=== PATIENT | male | born 1965 | race African-American/Black ===

== ENCOUNTER 2024-10-08 20:33 | Observation (INO) ==
--- NOTE | 2024-10-08 20:49 | ED.PDOC ---
General <BHAVANI YEE DO - Last Filed: 10/09/24 07:21> [facility] ED Provider: Dr. BHAVANI YEE DO Chief Complaint: Chest Pain Stated Complaint: 58-year-old -British male presents via EMS with complaint of chest pain. Medics state that the patient specifically requested to come to [facility]. Patient has severe expressive aphasia and is unintelligible but appears to be oriented and not have receptive aphasia. However cannot be definitively determined. He has a markedly elevated blood pressure here but does not continue to complain of chest pain. He does however become easily agitated if staff is on the telephone and he feels that we are speaking about him. Unfortunately patient is initially in the harmon so every time we use the phone to talk about another patient he becomes agitated thinking were talking with his family and he is adamantly stating he does not want anyone in his family contacted. He is alert oriented does not appear to be in any acute respiratory respiratory distress. Blood pressure is noted markedly elevated 240/194. Meds given see below. Unable to obtain review of systems given patient's expressive aphasia and lack of family member and lack of previous medical records. Time Seen by Provider: 10/08/24 20:48 Mode of Arrival: Ambulance Information Source: Patient Exam Limitations: Altered mental status and Other (Expressive aphasia both oral and written) Nursing and Triage Documentation Reviewed and Agree: Yes Opioid Naive vs. Tolerant Does Patient Take Opioids?: No Is Patient Opioid Naive?: Yes What is Opioid Naive?: *Opioid Naive implies the patient is not already taking opioids or not chronically receiving opioids on a daily basis. *PRN dosing is not "usually" associated with tolerance. *Patients are at higher risk of over-sedation and aspiration. Is Patient Opioid Tolerant?: No What is Opioid Tolerant?: *Opioid Tolerance implies less than the expected response to an opioid. *Acquired tolerance is defined by the patient taking 60mg of oral morphine daily (or equianalgesic dose of another opioid) for 1 week or more. *Often associated with chronic pain. *May take more than usual dose to achieve desired pain control. Review of Systems <BHAVANI YEE DO - Last Filed: 10/09/24 07:21> Review Of Systems Constitutional: Denies Chills or Fever Cardiac: Reports Chest pain All Other Systems: Other (Unable to obtain accurate review of systems due to patient's expressive aphasia) [facility] <BHAVANI YEE DO - Last Filed: 10/09/24 07:21> [facility] Social History Smoking and tobacco status: Former smoker Physical Exam <BHAVANI YEE DO - Last Filed: 10/09/24 07:21> Physical Exam Appearance: Reports Well-appearing, No pain distress and Well-nourished Ill-appearing: None Pain Distress: None Eyes: Reports BRITTNY, EOMI and Conjunctiva clear ENT: Reports Ears normal, Nose normal and Oropharynx normal Neck: Supple Respiratory: Reports Airway patent, Breath sounds clear, Breath sounds equal and Respirations nonlabored; Denies Crackles, Rhonchi or Wheezes Cardiovascular: Reports RRR, Pulses normal and No murmur GI/: Reports Soft, Nontender and Bowel sounds normal Musculoskeletal: Reports No edema and Limited ROM (Patient moves extremities x 4. Strength testing not performed due to difficulty in communication. Strength in lower extremities appears to be less than upper extremities.); Denies Edema Skin: Reports Warm, Dry and Normal color Neurological: Reports Motor intact, Reflexes intact, Alert, Oriented (Patient has both verbal and written expressive aphasia but he appears to be oriented he knew to tell the EMS to bring him here he appears to be trying to verbalize stimuli's blood pressure is high cannot not be 100% clear on orientation), Focal Deficit (Expressive aphasia both verbal and written marked) and Other (No facial asymmetries are appreciated. Patient is not mobile however unclear if he is and mobile at home or just does not want to get out of the bed here) Psychiatric: Reports Anxious and Other (At times patient is agitated. Mostly when he thinks we are on the phone with family member speaking about him.) Interpretation <BHAVANI YEE DO - Last Filed: 10/09/24 07:21> EKG Interpretation EKG Interpretation By: ED Physician (EKG interpreted by this physician Bhavani Yee at 2040 9 PM) Time of EKG #1: 20:40 Rate: Normal (Normal sinus rhythm, rate 93.) Rhythm: Sinus (No STEMI) Ectopy: None [place]: NL (Normal intervals.) ST Segment: Other (Nonspecific T wave abnormality aVR aVL V2 no significant ST-T abnormality) Interpretation: LAE.Borderline LVH based on voltage (nl variant for patient's body habitus <RITESH FREEDMAN DO - Last Filed: 10/09/24 11:18> EKG Interpretation EKG Interpretation By: ED Physician (Dr. Freedman) Time of EKG #2: 10:36 Rate: Normal (65) Rhythm: Sinus Ectopy: None [place]: NL ST Segment: Normal EKG Interpretation: Nonischemic Re-Evaluation <RITESH FREEDMAN DO - Last Filed: 10/09/24 11:18> Re-Evaluation Additional Comments: 1000: The patient's vital signs have improved and has remained stable for an extended timeframe in the emergency department. There is a significant difficulty with communication with this patient due to his history of CVA. His presenting complaint per the overnight physician was hypertension which was treated initially and then he became hypotensive. This corrected after monitoring in the emergency department as well as switching the blood pressure cuff. This may have been the underlying contributor. After attempting to discussed with the patient on numerous occasions in addition to family, it sounds as though he may have signed himself out from rehab at some point but that was by report of EMS overnight which I have no direct way to confirm with any family or EMS other than by report of the daytime nursing staff that got it from report from overnight nursing staff. I have been able to ask the patient in direct questioning's with yes or no answers which she is able to answer appropriately, if he would be willing to be hospitalized for possible placement for rehabilitation treatment as well as further monitoring due to his presenting hypertension and subsequent hypotension. He is agreeable. Since he has a history of stroke, I will get a head CT to ensure that there is no significant changes, and for admission purposes will repeat a troponin and EKG to ensure that there is no latent pathologies that may have developed. 1042: Hospitalist service is gracious to accept for uncontrolled hypertensive/hypertensive crisis observation. This will be pending the result of the repeat troponin and head CT. 1116: Patient remained stable. CT, troponin and repeat EKG all unremarkable for acute findings. Admission orders placed. <BHAVANI YEE DO - Last Filed: 10/09/24 07:21> Physician Progress Note Physician Progress Note: 58-year-old -British male presents with chest pain complaint. Patient's blood pressure is severely elevated at 240/194. Patient unfortunately has severe expressive aphasia both written and vocal and we do not have any medical records for past history. No family member with patient. Based on this we will proceed with full workup for cardiac eval and treat blood pressure to lower below all critical levels. Unclear if patient stroke was hemorrhagic or if it was from infarct. Patient was seen at [facility] (?) and at that facility had a positive urine drug screen for cocaine. We also got a positive urine drug screen for cocaine. When I asked patient about it he became agitated and appeared to be insisting he had not done any cocaine. However again severe limitation in communication due to expressive aphasia. Initial troponins are normal. Was able to get blood pressure down to a safer level averaging around 165-170/105-115. Vital signs stable otherwise. Patient refused to have us reach out to family members. We have moved him to room 3 and will monitor. Blood pressure had slowly improved but remained over the 105-115 diastolic. Patient given p.o. lisinopril. Later blood pressure dropped into the 90s over 60s and 84/67 then this morning most recent 79/48. Patient given IV fluid bolus. He has been easily aroused and in no distress when awakened with blood pressure of 79/58. Will continue to monitor. Care of patient turned over to Dr. Freedman. Patient had initially been discharged but with changes in blood pressure have continue to monitor in ED. QUINN score on patient was 1 but we were unable to accurately assess given lack of history and lack of patient's ability to communicate effectively. Unknown if patient has coronary artery disease or is ever had any previous coronary artery intervention. Oh 7:19 AM. Care of patient turned over to Dr. Freedman with recent decrease in blood pressure necessitating reassessment and fluid bolus. Patient has received initial fluid bolus with blood pressure coming up already to 84/68. Continue to monitor. Course <BHAVANI YEE, DO - Last Filed: 10/09/24 07:21> Course 10/08/24 20:55 10/08/24 20:55 Orders, Labs, Meds: Lab Review 10/08/24 10/08/24 10/09/24 20:55 22:05 10:32 WBC 4.78 RBC 4.96 Hgb 14.9 Hct 46.7 MCV 94.2 H MCH 30.0 MCHC 31.9 RDW Coeff of Nancy 14.0 Plt Count 228 Immature Gran % (Auto) 0.4 Neut % (Auto) 56.2 Lymph % (Auto) 32.2 Rock % (Auto) 9.4 Eos % (Auto) 1.0 Baso % (Auto) 0.8 Neut # (Auto) 2.7 Lymph # (Auto) 1.5 Rock # (Auto) 0.5 Eos # (Auto) 0.1 Baso # (Auto) 0.0 Immature Gran # (Auto) 0.0 Sodium 138.4 Potassium 4.12 Chloride 99.9 Carbon Dioxide 28.8 Anion Gap 13.82 BUN 6.5 L Creatinine 0.99 Estimated GFR (MDRD) 94.00 BUN/Creatinine Ratio 6.56 Glucose 117.7 H Lactic Acid 1.68 Calcium 9.87 Total Bilirubin 0.94 AST 29.2 ALT 23.6 Alkaline Phosphatase 90.4 Troponin I < 0.012 < 0.012 NT-Pro-B Natriuret Pep 169 Total Protein 8.06 Albumin 4.45 Globulin 3.61 Albumin/Globulin Ratio 1.23 D-Dimer 1265.00 H Urine Opiates Screen Negative Ur Oxycodone Screen Negative Urine Methadone Screen Negative Ur Barbiturates Screen Negative U Tricyclic Antidepress Negative Ur Phencyclidine Scrn Negative Ur Amphetamine Screen Negative U Methamphetamines Scrn Negative U Benzodiazepines Scrn Negative Urine Cocaine Screen Positive H U Cannabinoids Screen Negative Orders Category Date Time Status ADMIT OBSERVATION [PLACE PATIENT OBSERVATION] .TO ADMISSION 10/09/24 11:16 Active MEDSURG (MONITORED BED) EKG-(ED ONLY) Stat CARDIO 10/08/24 20:46 Completed EKG-(ED ONLY) Stat CARDIO 10/09/24 10:22 Completed NPO REMINDER: IMAGING ONCE CARE 10/08/24 22:50 Completed TELEMETRY MONITORING TELE CARE 10/09/24 11:16 Active ED APPLY O2 .ONCE EMERGENCY 10/08/24 20:46 Active ED GEOPHYSICAL ENGINEER APPLIED .ONCE EMERGENCY 10/08/24 20:46 Active CBC W/ AUTO DIFF Stat LAB 10/08/24 20:55 Completed COMPREHENSIVE METABOLIC PANEL Stat LAB 10/08/24 20:55 Completed D-DIMER Stat LAB 10/08/24 20:55 Completed DRUG SCREEN, URINE, RAPID Stat LAB 10/08/24 22:05 Completed LACTIC ACID Stat LAB 10/08/24 20:55 Completed NT-PROBNP(ED) Stat LAB 10/08/24 20:55 Completed TROPONIN I Stat LAB 10/08/24 20:55 Completed TROPONIN I Stat LAB 10/09/24 10:32 Completed Aspirin [Aspirin Chewable] Meds 10/08/24 21:27 Discontinued 324 mg PO ONCE STA Iohexol [Omnipaque 350 mg/ml 100Ml] Meds 10/08/24 23:04 Discontinued 100 ml IVP ONCE ONE Lisinopril [Zestril] Meds 10/09/24 02:02 Discontinued 10 mg PO ONCE STA Metoprolol Succinate [Toprol Xl] Meds 10/08/24 21:27 Discontinued 50 mg PO ONCE STA Metoprolol Tartrate [Lopressor] Meds 10/08/24 21:25 Discontinued 5 mg IVP ONCE STA Sodium Chloride 0.9% [Sodium Chloride] 1,000 ml Meds 10/09/24 06:54 Active IV 100 mls/hr CHEST, 1V AP ONLY Stat RADS 10/08/24 20:[address] HEAD W/O CONTRAST Stat RADS 10/09/24 10:22 Completed CTA CHEST PE PROTOCOL Stat RADS 10/08/24 22:50 Completed Medications Generic Name Dose Route Start Last Admin Trade Name Freq PRN Reason Stop Dose Admin Sodium Chloride 1,000 mls @ 100 mls/hr 10/09/24 06:54 10/09/24 11:08 Sodium Chloride IV 10/09/24 16:53 Not Given .Q10H ONE Discontinued Medications Generic Name Dose Route Start Last Admin Trade Name Freq PRN Reason Stop Dose Admin Aspirin 324 mg 10/08/24 21:27 10/08/24 22:18 Aspirin 81 Mg Tab.Chew PO 10/08/24 21:28 324 mg ONCE STA Administration Iohexol 100 ml 10/08/24 23:04 10/08/24 23:05 Iohexol 350 Mg/Ml 100ml IVP 10/08/24 23:05 100 ml ONCE ONE Administration Lisinopril 10 mg 10/09/24 02:02 10/09/24 02:12 Lisinopril 10 Mg Tablet PO 10/09/24 02:03 10 mg ONCE STA Administration Metoprolol Succinate 50 mg 10/08/24 21:27 10/08/24 22:18 Metoprolol Succinate 50 Mg Tab.Er.24h PO 10/08/24 21:28 50 mg ONCE STA Administration Metoprolol Tartrate 5 mg 10/08/24 21:25 10/08/24 22:18 Metoprolol Tartrate 5 Mg/5 Ml Vial IVP 10/08/24 21:26 5 mg ONCE STA Administration Vital Signs: Temp Pulse Resp BP Pulse Ox 10/09/24 11:04 63 18 133/87 97 10/09/24 08:31 64 13 110/79 10/09/24 07:19 67 16 105/72 10/08/24 20:33 98.7 F 90 16 194/130 H 98 <RITESH FREEDMAN, DO - Last Filed: 10/09/24 11:18> Course Orders, Labs, Meds: Lab Review 10/08/24 10/08/24 10/09/24 20:55 22:05 10:32 WBC 4.78 RBC 4.96 Hgb 14.9 Hct 46.7 MCV 94.2 H MCH 30.0 MCHC 31.9 RDW Coeff of Nancy 14.0 Plt Count 228 Immature Gran % (Auto) 0.4 Neut % (Auto) 56.2 Lymph % (Auto) 32.2 Rock % (Auto) 9.4 Eos % (Auto) 1.0 Baso % (Auto) 0.8 Neut # (Auto) 2.7 Lymph # (Auto) 1.5 Rock # (Auto) 0.5 Eos # (Auto) 0.1 Baso # (Auto) 0.0 Immature Gran # (Auto) 0.0 Sodium 138.4 Potassium 4.12 Chloride 99.9 Carbon Dioxide 28.8 Anion Gap 13.82 BUN 6.5 L Creatinine 0.99 Estimated GFR (MDRD) 94.00 BUN/Creatinine Ratio 6.56 Glucose 117.7 H Lactic Acid 1.68 Calcium 9.87 Total Bilirubin 0.94 AST 29.2 ALT 23.6 Alkaline Phosphatase 90.4 Troponin I < 0.012 < 0.012 NT-Pro-B Natriuret Pep 169 Total Protein 8.06 Albumin 4.45 Globulin 3.61 Albumin/Globulin Ratio 1.23 D-Dimer 1265.00 H Urine Opiates Screen Negative Ur Oxycodone Screen Negative Urine Methadone Screen Negative Ur Barbiturates Screen Negative U Tricyclic Antidepress Negative Ur Phencyclidine Scrn Negative Ur Amphetamine Screen Negative U Methamphetamines Scrn Negative U Benzodiazepines Scrn Negative Urine Cocaine Screen Positive H U Cannabinoids Screen Negative Orders Category Date Time Status ADMIT OBSERVATION [PLACE PATIENT OBSERVATION] .TO ADMISSION 10/09/24 11:16 Active MEDSURG (MONITORED BED) EKG-(ED ONLY) Stat CARDIO 10/08/24 20:46 Completed EKG-(ED ONLY) Stat CARDIO 10/09/24 10:22 Completed NPO REMINDER: IMAGING ONCE CARE 10/08/24 22:50 Completed TELEMETRY MONITORING TELE CARE 10/09/24 11:16 Active ED APPLY O2 .ONCE EMERGENCY 10/08/24 20:46 Active ED GEOPHYSICAL ENGINEER APPLIED .ONCE EMERGENCY 10/08/24 20:46 Active CBC W/ AUTO DIFF Stat LAB 10/08/24 20:55 Completed COMPREHENSIVE METABOLIC PANEL Stat LAB 10/08/24 20:55 Completed D-DIMER Stat LAB 10/08/24 20:55 Completed DRUG SCREEN, URINE, RAPID Stat LAB 10/08/24 22:05 Completed LACTIC ACID Stat LAB 10/08/24 20:55 Completed NT-PROBNP(ED) Stat LAB 10/08/24 20:55 Completed TROPONIN I Stat LAB 10/08/24 20:55 Completed TROPONIN I Stat LAB 10/09/24 10:32 Completed Aspirin [Aspirin Chewable] Meds 10/08/24 21:27 Discontinued 324 mg PO ONCE STA Iohexol [Omnipaque 350 mg/ml 100Ml] Meds 10/08/24 23:04 Discontinued 100 ml IVP ONCE ONE Lisinopril [Zestril] Meds 10/09/24 02:02 Discontinued 10 mg PO ONCE STA Metoprolol Succinate [Toprol Xl] Meds 10/08/24 21:27 Discontinued 50 mg PO ONCE STA Metoprolol Tartrate [Lopressor] Meds 10/08/24 21:25 Discontinued 5 mg IVP ONCE STA Sodium Chloride 0.9% [Sodium Chloride] 1,000 ml Meds 10/09/24 06:54 Active IV 100 mls/hr CHEST, 1V AP ONLY Stat RADS 10/08/24 20:[address] HEAD W/O CONTRAST Stat RADS 10/09/24 10:22 Completed [address]A CHEST PE PROTOCOL Stat RADS 10/08/24 22:50 Completed Medications Generic Name Dose Route Start Last Admin Trade Name Freq PRN Reason Stop Dose Admin Sodium Chloride 1,000 mls @ 100 mls/hr 10/09/24 06:54 10/09/24 11:08 Sodium Chloride IV 10/09/24 16:53 Not Given .Q10H ONE Discontinued Medications Generic Name Dose Route Start Last Admin Trade Name Haim PRN Reason Stop Dose Admin Aspirin 324 mg 10/08/24 21:27 10/08/24 22:18 Aspirin 81 Mg Tab.Chew PO 10/08/24 21:28 324 mg ONCE STA Administration Iohexol 100 ml 10/08/24 23:04 10/08/24 23:05 Iohexol 350 Mg/Ml 100ml IVP 10/08/24 23:05 100 ml ONCE ONE Administration Lisinopril 10 mg 10/09/24 02:02 10/09/24 02:12 Lisinopril 10 Mg Tablet PO 10/09/24 02:03 10 mg ONCE STA Administration Metoprolol Succinate 50 mg 10/08/24 21:27 10/08/24 22:18 Metoprolol Succinate 50 Mg Tab.Er.24h PO 10/08/24 21:28 50 mg ONCE STA Administration Metoprolol Tartrate 5 mg 10/08/24 21:25 10/08/24 22:18 Metoprolol Tartrate 5 Mg/5 Ml Vial IVP 10/08/24 21:26 5 mg ONCE STA Administration Vital Signs: Temp Pulse Resp BP Pulse Ox 10/09/24 11:04 63 18 133/87 97 10/09/24 08:31 64 13 110/79 10/09/24 07:19 67 16 105/72 10/08/24 20:33 98.7 F 90 16 194/130 H 98 QUINN Risk Score <BHAVANI YEE DO - Last Filed: 10/09/24 07:21> Age >/= 65: No >/= 3 CAD Risk Factors: Yes EKG ST Changes >/= 0.5mm: No Postive Cardiac Marker: No QUINN Total Score: 1 QUINN Risk Score: Risk Score Odds of by 30D 0 0.1 (0.1-0.2) 1 0.3 (0.2-0.3) 2 0.4 (0.3-0.5) 3 0.7 (0.6-0.9) 4 1.2 (1.0-1.5) 5 2.2 (1.9-2.6) 6 3.0 (2.5-3.6) 7 4.8 (3.8-6.1) <RITESH FREEDMAN DO - Last Filed: 10/09/24 11:18> QUINN Total Score: 1 Discharge Plan Discharge Patient Disposition: PLACED OBSERVATION Discharge Problem: Chest pain, Hypertensive urgency, Cocaine abuse, Impaired functional mobility, balance, gait, and endurance, Aphasia following cerebral infarction Did you review [place] MEDIA JOB TITLES for ALL controlled substances?: Not Applicable ED Provider: BHAVANI YEE Condition: Stable
[2024-10-08 21:01] LABS: IMMATURE GRANULOCYTE # (AUTO) 0.0 (0.0-1.0); IMMATURE GRANULOCYTE % (AUTO) 0.4 % (0.0-5.0); RDW COEFFICIENT OF VARIATION 14.0 % (11.6-14.8)
[2024-10-08 21:15] LABS: CREATININE 0.99 mg/dL (0.60-1.10)
--- NOTE | 2024-10-08 21:50 | DI ---
EXAMINATION: AP CHEST RADIOGRAPH. HISTORY: chest pain COMPARISON: 10/06/2024 FINDINGS: Skin fold again seen overlying the right hemithorax.No focal consolidation, pleural effusion or pneumothorax is identified. The cardiomediastinal silhouette is within normal limits. IMPRESSION: No acute cardiopulmonary findings.
[2024-10-08] MEDS: TOPROL XL PO STA (22:18)
[2024-10-08] MEDS: LOPRESSOR IVP STA (22:18)
[2024-10-08] MEDS: ASPIRIN CHEWABLE PO STA (22:18)
[2024-10-08 22:52] LABS: AMPHETAMINE SCREEN,URINE NEGATIVE (NEGATIVE); CANNABINOID SCREEN,URINE NEGATIVE (NEGATIVE); COCAIN SCREEN,URINE POSITIVE (NEGATIVE); METHADONE URINE SCREEN NEGATIVE (NEGATIVE); METHAMPHETAMINES SCREEN,URINE NEGATIVE (NEGATIVE); OXYCODONE URINE SCREEN NEGATIVE (NEGATIVE); TRICYCLIC ANTIDEPRESSANTS URIN NEGATIVE (NEGATIVE)
[2024-10-08] MEDS: OMNIPAQUE 350 MG/ML 100ML IVP ONE (23:05)
--- NOTE | 2024-10-08 23:59 | CT ---
EXAM: CT ANGIOGRAPHY OF THE CHEST HISTORY: Chest pain with elevated D-dimer TECHNIQUE: 1.[address] of the chest utilizing CT angiography protocol. Multiplanar an three-dimensional reformations were performed. FINDINGS: Technically adequate for evaluation of pulmonary arteries. No pulmonary artery filling defects. Minor dependent atelectasis. Atherosclerotic calcification of the aorta without aneurysm or dissection. No acute chest wall abnormality. No acute findings of the upper abdomen. IMPRESSION: 1. No evidence of pulmonary artery thrombus 2. Minor lung base atelectasis. No acute findings of the chest otherwise. All CT scans are performed using dose optimization techniques as appropriate to the performed exam and include at least one of the following: Automated exposure control, adjustment of the mA and/or kV according to size, and the use of iterative reconstruction technique.
[2024-10-09] MEDS: ZESTRIL PO STA (02:12)
--- NOTE | 2024-10-09 11:07 | CT ---
EXAMINATION: HEAD CT WITHOUT CONTRAST HISTORY: Hypertension urgency. History of CVA TECHNIQUE: Noncontrast CT of the brain was performed with images acquired from skull base to vertex. 2-D coronal and sagittal reformatted images were obtained from the axial source images. CT Dose Reduction Techniques Performed: Yes. Contrast: None. COMPARISON: 09/15/24. FINDINGS: Intraparenchymal hemorrhage: None. Parenchyma: Chronic left MCA distribution infarction. Moderate chronic microvascular ischemic changes noted in the periventricular and juxtacortical white matter and centrum semiovale. Ventricles/Extra-axial spaces and basal cisterns: The ventricles and cortical sulci are mildly prominent consistent with age related changes. There is no hydrocephalus. Ex vacuo enlargement of the left lateral ventricle Paranasal sinuses and mastoid air cells: Visualized portions of paranasal sinuses are clear. Mastoid air cells are clear. Orbits: Normal visualized portions. Sella/Skull Base: Normal. Bones: Calvarium is normal. Scalp/Soft Tissues: Scalp and visualized soft tissues are normal. IMPRESSION: 1. No intracranial hemorrhage. 2. No acute findings. 3. Chronic left MCA distribution infarction. 4. Moderate atrophy and small vessel disease. All CT scans are performed using dose optimization techniques as appropriate to the performed exam and include at least one of the following: Automated exposure control, adjustment of the mA and/or kV according to size, and the use of iterative reconstruction technique.
[2024-10-09] MEDS: SODIUM CHLORIDE 1,000 ML IV ONE (11:08)
[2024-10-09] MEDS ORDERED: TYLENOL PO PRN (11:19)
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
[2024-10-09] MEDS: LIPITOR PO SCH (13:46)
[2024-10-09] MEDS: FLOMAX PO SCH (13:46)
[2024-10-09] MEDS: LEXAPRO PO SCH (13:46)
[2024-10-09] MEDS: KEPPRA PO SCH (13:47)
[2024-10-09] MEDS: FOLIC ACID PO SCH (13:47)
[2024-10-09 14:27] VITALS: BMI 17.8
[2024-10-09] MEDS: NICODERM 21 MG TD SCH (17:16)
[2024-10-09] MEDS: SODIUM CHLORIDE 1,000 ML IV SCH (19:40)
[2024-10-10 05:39] LABS: IMMATURE GRANULOCYTE # (AUTO) 0.0 (0.0-1.0); IMMATURE GRANULOCYTE % (AUTO) 0.2 % (0.0-5.0); RDW COEFFICIENT OF VARIATION 13.9 % (11.6-14.8)
[2024-10-10 05:56] LABS: CREATININE 1.0 mg/dL (0.60-1.10)
--- NOTE | 2024-10-10 12:25 | PCM.PROG ---
Date/Time Seen Date Seen by Provider: 10/10/24 Time Seen by Provider: 09:00 Provider [facility] Chief Complaint Chief Complaint: HYPERTENSIVE CRISIS Subjective Subjective: Blood pressure soft yesterday and started IV fluids. Stopped this am. No complaints of chest pain today. Objective Appearance: Positive No Apparent Distress and Alert and Oriented x3 Chest/Lungs: Positive Symmetrical With Equal Breath Sounds, Clear to Ausc ultation Bilaterally and Good Air Movement all 4 Lung Farrell; Negative Rales, Rhonci or Wheezes Heart: Positive RRR and Pulses Normal GI/: Positive Soft, Nontender, Bowel Sounds Normal and No Distention Musculoskeletal: Positive Not Examined Neurological: Positive Sensation Intact, Motor intact (R sided hemiplegia), Reflexes Intact and Alert Vital Signs Vital Signs: Vital Signs: Last 24 Hours 10/09/24 12:43 10/09/24 13:21 10/09/24 13:21 Temperature 98.4 F Temperature Source Temporal Artery Scan Pulse Rate 68 Respiratory Rate 18 18 Blood Pressure Blood Pressure Mean Blood Pressure Left Arm 152/92 Blood Pressure Location Blood Pressure Position Sitting O2 Sat by Pulse Oximetry 97 Oxygen Delivery Method Room Air Room Air Height 6 ft Weight 59.6 kg Telemetry Type Bedside Monitor Telemetry Monitoring Started Telemetry Heart Rate 85 EKG KS Interval 0.14 EKG QRS Interval 0.08 Telemetry Strip Reading NSR 10/09/24 14:00 10/09/24 14:00 10/09/24 15:00 Temperature 98.1 F Temperature Source Temporal Artery Scan Pulse Rate 55 L Respiratory Rate 11 L Blood Pressure 155/99 H Blood Pressure Mean 117 Blood Pressure Left Arm Blood Pressure Location Right Arm Blood Pressure Position O2 Sat by Pulse Oximetry 97 Oxygen Delivery Method Room Air Room Air Room Air Height Weight Telemetry Type Telemetry Monitoring Telemetry Heart Rate EKG KS Interval EKG QRS Interval Telemetry Strip Reading 10/09/24 16:00 10/09/24 17:00 10/09/24 18:00 Temperature 96.8 F L Temperature Source Temporal Artery Scan Pulse Rate 61 Respiratory Rate 16 Blood Pressure 88/62 L Blood Pressure Mean 70 Blood Pressure Left Arm Blood Pressure Location Right Arm Blood Pressure Position Supine O2 Sat by Pulse Oximetry 96 Oxygen Delivery Method Room Air Room Air Room Air Height Weight Telemetry Type Telemetry Monitoring Telemetry Heart Rate EKG KS Interval EKG QRS Interval Telemetry Strip Reading 10/09/24 18:00 10/09/24 18:09 10/09/24 19:00 Temperature Temperature Source Pulse Rate Respiratory Rate Blood Pressure 91/57 L Blood Pressure Mean 68 Blood Pressure Left Arm Blood Pressure Location Left Arm Blood Pressure Position O2 Sat by Pulse Oximetry Oxygen Delivery Method Room Air Room Air Room Air Height Weight Telemetry Type Telemetry Monitoring Telemetry Heart Rate EKG KS Interval EKG QRS Interval Telemetry Strip Reading 10/09/24 19:00 10/09/24 20:00 10/09/24 20:00 Temperature Temperature Source Pulse Rate Respiratory Rate Blood Pressure Blood Pressure Mean Blood Pressure Left Arm Blood Pressure Location Blood Pressure Position O2 Sat by Pulse Oximetry Oxygen Delivery Method Room Air Room Air Height Weight Telemetry Type Bedside Monitor Telemetry Monitoring Continues Telemetry Heart Rate 62 EKG KS Interval 0.14 EKG QRS Interval 0.08 Telemetry Strip Reading SR 10/09/24 21:00 10/09/24 21:30 10/09/24 22:00 Temperature 97.1 F L Temperature Source Temporal Artery Scan Pulse Rate 61 Respiratory Rate 16 Blood Pressure 94/65 Blood Pressure Mean 74 Blood Pressure Left Arm Blood Pressure Location Left Arm Blood Pressure Position Supine O2 Sat by Pulse Oximetry 96 Oxygen Delivery Method Room Air Room Air Room Air Height Weight Telemetry Type Telemetry Monitoring Telemetry Heart Rate EKG KS Interval EKG QRS Interval Telemetry Strip Reading 10/09/24 22:10 10/09/24 23:00 10/10/24 00:00 Temperature Temperature Source Pulse Rate Respiratory Rate Blood Pressure 100/64 Blood Pressure Mean 76 Blood Pressure Left Arm Blood Pressure Location Right Arm Blood Pressure Position Supine O2 Sat by Pulse Oximetry Oxygen Delivery Method Room Air Room Air Room Air Height Weight Telemetry Type Telemetry Monitoring Telemetry Heart Rate EKG KS Interval EKG QRS Interval Telemetry Strip Reading 10/10/24 01:00 10/10/24 01:00 10/10/24 02:00 Temperature Temperature Source Pulse Rate Respiratory Rate Blood Pressure Blood Pressure Mean Blood Pressure Left Arm Blood Pressure Location Blood Pressure Position O2 Sat by Pulse Oximetry Oxygen Delivery Method Room Air Room Air Height Weight Telemetry Type Bedside Monitor Telemetry Monitoring Continues Telemetry Heart Rate 62 EKG KS Interval 0.15 EKG QRS Interval 0.08 Telemetry Strip Reading SR 10/10/24 02:00 10/10/24 03:00 10/10/24 04:00 Temperature Temperature Source Pulse Rate 61 Respiratory Rate 16 Blood Pressure 116/83 Blood Pressure Mean 94 Blood Pressure Left Arm Blood Pressure Location Right Arm Blood Pressure Position Supine O2 Sat by Pulse Oximetry Oxygen Delivery Method Room Air Room Air Room Air Height Weight Telemetry Type Telemetry Monitoring Telemetry Heart Rate EKG KS Interval EKG QRS Interval Telemetry Strip Reading 10/10/24 05:00 10/10/24 05:40 10/10/24 05:47 Temperature 97.5 F L Temperature Source Temporal Artery Scan Pulse Rate 52 L Respiratory Rate 17 Blood Pressure 94/61 Blood Pressure Mean 72 Blood Pressure Left Arm Blood Pressure Location Right Arm Blood Pressure Position Supine O2 Sat by Pulse Oximetry 96 Oxygen Delivery Method Room Air Room Air Room Air Height Weight Telemetry Type Telemetry Monitoring Telemetry Heart Rate EKG KS Interval EKG QRS Interval Telemetry Strip Reading 10/10/24 07:00 10/10/24 07:00 10/10/24 08:00 Temperature Temperature Source Pulse Rate Respiratory Rate Blood Pressure Blood Pressure Mean Blood Pressure Left Arm Blood Pressure Location Blood Pressure Position O2 Sat by Pulse Oximetry Oxygen Delivery Method Room Air Room Air Height Weight Telemetry Type Remote Telemetry Telemetry Monitoring Continues Telemetry Heart Rate 55 L EKG KS Interval 0.20 EKG QRS Interval 0.09 Telemetry Strip Reading Bradycardia 10/10/24 09:00 10/10/24 10:00 10/10/24 10:00 Temperature 96.1 F L Temperature Source Temporal Artery Scan Pulse Rate 59 L Respiratory Rate 14 Blood Pressure 109/72 Blood Pressure Mean 84 Blood Pressure Left Arm Blood Pressure Location Right Arm Blood Pressure Position O2 Sat by Pulse Oximetry 99 Oxygen Delivery Method Room Air Room Air Room Air Height Weight Telemetry Type Telemetry Monitoring Telemetry Heart Rate EKG KS Interval EKG QRS Interval Telemetry Strip Reading Lab Results Lab Results: Lab Results: Last 24 Hours 10/10/24 05:34 WBC 4.24 RBC 4.17 L Hgb 12.6 L Hct 38.5 L D MCV 92.3 MCH 30.2 MCHC 32.7 RDW Coeff of Nancy 13.9 Plt Count 197 Immature Gran % (Auto) 0.2 Neut % (Auto) 50.5 Lymph % (Auto) 37.3 [place] % (Auto) 7.5 Eos % (Auto) 3.8 Baso % (Auto) 0.7 Neut # (Auto) 2.1 Lymph # (Auto) 1.6 [place] # (Auto) 0.3 L Eos # (Auto) 0.2 Baso # (Auto) 0.0 Immature Gran # (Auto) 0.0 Sodium 138.9 Potassium 4.04 Chloride 104.8 Carbon Dioxide 29.1 Anion Gap 9.04 BUN 11.4 Creatinine 1.00 Estimated GFR (MDRD) 93.00 BUN/Creatinine Ratio 11.40 Glucose 92.6 Calcium 8.99 Total Bilirubin 0.90 AST 25.1 ALT 19.6 Alkaline Phosphatase 67.3 Total Protein 6.36 Albumin 3.49 L Globulin 2.87 Albumin/Globulin Ratio 1.21 Additional Comments Additional Comments: I have independently reviewed and interpreted the labs/EKGs/imaging ordered during this hospital stay. I have reviewed outside records that are available in our EMR that pertain to medical stay including imaging/notes/labs from previous visits. Active Medications Active Medications: Medications Generic Name Dose Route Start Last Admin Trade Name Freq PRN Reason Stop Dose Admin Acetaminophen 650 mg 10/09/24 11:19 Acetaminophen 325 Mg Tablet PO Q4H PRN Mild Pain Atorvastatin Calcium 40 mg 10/09/24 13:00 10/10/24 08:10 Atorvastatin Calcium 20 Mg Tablet PO 40 mg DAILY [facility] Administration Escitalopram Oxalate 10 mg 10/09/24 13:00 10/10/24 08:10 Escitalopram Oxalate 10 Mg Tablet PO 10 mg DAILY [facility] Administration Folic Acid 1 mg 10/09/24 13:00 10/10/24 08:10 Folic Acid 1 Mg Tablet PO 1 mg DAILY [facility] Administration Levetiracetam 500 mg 10/09/24 13:00 10/10/24 08:11 Levetiracetam 500 Mg Tablet PO 500 mg BID [facility] Administration Nicotine 1 patch 10/09/24 17:00 10/10/24 08:06 Nicotine 21 Mg Patch.Td24 TD 1 patch DAILY [facility] Administration Tamsulosin HCl 0.4 mg 10/09/24 13:00 10/10/24 08:10 Tamsulosin Hcl 0.4 Mg Cap.Er.24h PO 0.4 mg DAILY [facility] Administration Plan Plan: 1. Hypertensive Urgency secondary to Cocaine use - resolved at this time, became hypotensive in ER, holding on adding anti-hypertensives to regimen, telemetry, VSQ4H 2. Chest pain - troponins negative, chest pain resolved with resolution of high blood pressure, positive for cocaine 3. Seizures - chronic, continue home medication 4. H/o CVA - continue home medications DVT Prophylaxis: Ambulation Disposition: Unsafe to discharge home given patient's condition and inability to care for self independently. Upon researching for more information, discovered that patient was previously admitted to [facility] in [place] following his stroke. Contacted facility and spoke extensively with perinatal social worker, Maris. He tested positive for Covid last week and was isolated to his room and got mad. He then complained of chest pain and was taken to the ER in [place] where he was then transferred to [facility]. At [place], patient refused to return to [place] and he was transported back to his home address here in [place]. No family has visited him at [place] and all have refused to help care for him. His daughter, Jayden told the penitentiary to stop calling and one of his brother's was in [place] and was not able to care for him. He does not have any POA paperwork and had been allowed to make his own decisions prior to this. Patient is not able to carry on conversation, write to communicate, and answers questions inappropriately. He pointed across the parking lot to our therapy building saying "there! there!". reinforcing metal worker and case management not available today and need assistance with discharge plans to safely discharge patient at this time. Review Statement Review Statement: I have personally discussed and reviewed the patient's visit/currently labs/imaging/decision making with Dr. Sutherland, my supervising attending. Greater that 50 minutes spent with patient, 50% of the time spent with this patient was devoted to counseling and coordination of care.
[2024-10-11 05:06] LABS: IMMATURE GRANULOCYTE # (AUTO) 0.0 (0.0-1.0); IMMATURE GRANULOCYTE % (AUTO) 0.4 % (0.0-5.0); RDW COEFFICIENT OF VARIATION 13.7 % (11.6-14.8)
[2024-10-11 05:18] LABS: CREATININE 0.89 mg/dL (0.60-1.10)
[2024-10-11 09:58] VITALS: BP 121/80; PULSE 80; RESP 18; TEMP 96.7
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
== END 2024-10-11 13:10 ==
LOC: ED 20:33 → SCU 20:33
PROVIDERS: ADMIT Hospitalist; ATTEND Physician Assistant
DX: I95.9 Hypotension, unspecified; I69.320 Aphasia following cerebral infarction; Z51.81 Encounter for therapeutic drug level monitoring; R07.9 Chest pain, unspecified; Z87.891 Personal history of nicotine dependence; F14.10 Cocaine abuse, uncomplicated; I69.392 Facial weakness following cerebral infarction; R41.82 Altered mental status, unspecified; I10 Essential (primary) hypertension; I16.0 Hypertensive urgency; I69.354 Hemiplegia and hemiparesis following cerebral infarction affecting left non-dominant side; R56.9 Unspecified convulsions; Z79.899 Other long term (current) drug therapy